=== PATIENT | female | born 1960 | race Caucasian/White ===

== ENCOUNTER 2022-02-08 13:46 | Emergency (ER) | payer OTHER ==
[~2022-02-08] VITALS: Ht 167.6 cm; Wt 78.0 kg
[2022-02-08 14:12] VITALS: BP 147/89
[2022-02-08 14:31] VITALS: BP 117/70
[2022-02-08 15:00] VITALS: BP 108/68
[2022-02-08 15:41] VITALS: BP 108/68
== END 2022-02-08 15:46 | disposition home or self-care (01) | DRG 605 ==
LOC: ED 13:46
DX: S00.03XA Contusion of scalp, initial encounter (principal); W10.8XXA Fall (on) (from) other stairs and steps, initial encounter; Y92.008 Other place in unspecified non-institutional (private) residence as the place of occurrence of the external cause